=== PATIENT | male | born 1990 | race African-American/Black ===

== ENCOUNTER 2020-03-26 18:19 | Emergency (ER) | payer MEDICAID ==
[~2020-03-26] VITALS: Ht 185.4 cm; Wt 100.0 kg
[2020-03-26 18:20] VITALS: BP 143/77
[2020-03-26] MEDS ORDERED: KETOROLAC 60MG/2ML VIAL IM ONE (18:30)
[2020-03-26] MEDS ORDERED: HYDROCODONE/ACETAMINOPHEN 5/325MG TABLET PO ONE (19:00)
[2020-03-26] MEDS ORDERED: METHOCARBAMOL 750MG TABLET PO SCH (19:00)
[2020-03-26] MEDS ORDERED: METHOCARBAMOL 500MG TABLET PO NR (19:07)
== END 2020-03-26 20:50 | disposition home or self-care (01) ==
LOC: ER 18:19
DX: S46.091A Other injury of muscle(s) and tendon(s) of the rotator cuff of right shoulder, initial encounter (principal); Z88.0 Allergy status to penicillin; X58.XXXA Exposure to other specified factors, initial encounter; Y93.89 Activity, other specified; Y92.018 Other place in single-family (private) house as the place of occurrence of the external cause
CPT/HCPCS: 73030; 96372; 99283; J1885